=== PATIENT | female | born 1975 | race Caucasian/White ===

== ENCOUNTER 2020-05-12 10:03 | Emergency (ER) | payer MEDICAID ==
[~2020-05-12] VITALS: Ht 165.1 cm; Wt 72.6 kg
[2020-05-12] MEDS ORDERED: ONDANSETRON 4 MG/2 ML VIAL IV ONE (10:15)
[2020-05-12] MEDS ORDERED: IV NORMAL SALINE 1000 ML BAG IV ONE (10:15)
--- NOTE | 2020-05-12 10:20 | NUR ---
at bedside for assessment
[2020-05-12] MEDS ORDERED: ONDANSETRON 4 MG/2 ML VIAL ONE (10:26)
[2020-05-12] MEDS ORDERED: FAMOTIDINE 20 MG TABLET PO ONE (10:30)
[2020-05-12 10:32] LABS: *URINE HCG, QUAL NEG (NEGATIVE)
[2020-05-12] MEDS ORDERED: FAMOTIDINE 20 MG TABLET ONE (10:36)
[2020-05-12] MEDS ORDERED: FAMO-132 PO (10:47)
[2020-05-12] MEDS ORDERED: OMEP20CA15 PO (10:47)
[2020-05-12] MEDS ORDERED: LIDO1ADH78 TOP (10:59)
--- NOTE | 2020-05-12 11:03 | NUR ---
Patient discharged to home in stable condition. Rx given. Written and verbal after care instructions given. Patient verbalizes understanding of instructions. Stressed follow up or return to ER for worsening s/s.
[2020-05-12 11:11] VITALS: BP 119/73
== END 2020-05-12 11:01 | disposition home or self-care (01) ==
LOC: ER 10:03
DX: K21.9 Gastro-esophageal reflux disease without esophagitis (principal)
CPT/HCPCS: 84703; J2405; J7030

== ENCOUNTER 2020-05-19 00:33 | Emergency (ER) | payer MEDICAID ==
[~2020-05-19] VITALS: Ht 165.1 cm; Wt 59.0 kg
[~2020-05-19 00:33] MED LIST: FAMO-132 PO; LIDO1ADH78 TOP; OMEP20CA15 PO
--- NOTE | 2020-05-19 00:40 | NUR ---
Patient arrived at the ER with c/o left chest wall pain after seeing a rat at her kitchen 10min [employer].
--- NOTE | 2020-05-19 00:57 | NUR ---
Dr. Recinos at bedside for MSE.
[2020-05-19 01:24] LABS: BASOPHILS # (AUTO) 0.1 K/uL (0.0-8.0); BASOPHILS % (AUTO) 0.7 % (0.0-2.0); EOSINOPHILS # (AUTO) 0.1 K/uL (0.0-0.7); EOSINOPHILS % (AUTO) 1.7 % (0.0-7.0); HEMATOCRIT 33.2 % (31.2-41.9); HEMOGLOBIN 11.5 g/dL (10.9-14.3); LYMPHOCYTES # (AUTO) 2.6 K/uL (20.0-40.0); LYMPHOCYTES % (AUTO) 33.1 % (20.5-51.5); MEAN CORPUSCULAR HEMOGLOBIN 30.3 uug (24.7-32.8); MEAN CORPUSCULAR HGB CONC 35 g/dL (32.3-35.6); MEAN CORPUSCULAR VOLUME 87.1 fL (75.5-95.3); MONOCYTES # (AUTO) 0.6 K/uL (2.0-10.0); MONOCYTES % (AUTO) 8.2 % (0.0-11.0); NEUTROPHILS # (AUTO) 4.4 K/uL (1.8-8.9); NEUTROPHILS % (AUTO) 56.3 % (38.5-71.5); PLATELET COUNT (AUTO) 264 K/uL (179-408); RED BLOOD CELL COUNT(AUTO) 3.81 MIL/uL (3.63-4.92); WHITE BLOOD COUNT (AUTO) 7.9 K/uL (3.8-11.8)
[2020-05-19 01:25] LABS: CREATININE 0.9 mg/dL (0.6-1.3)
--- NOTE | 2020-05-19 02:03 | NUR ---
Patient discharged to home in stable condition. Written and verbal after care instructions given. Patient verbalizes understanding of instructions. Stressed follow up or return to ER for worsening s/s. Pt ambulated out of the ER with steady gait. All belongings with pt.
[2020-05-19 02:07] VITALS: BP 135/71
== END 2020-05-19 02:08 | disposition home or self-care (01) ==
LOC: ER 00:37
DX: R07.89 Other chest pain (principal); K21.9 Gastro-esophageal reflux disease without esophagitis; Z79.899 Other long term (current) drug therapy
CPT/HCPCS: 36415; 70030-TC; 71045; 85025; 93005; A4663